=== PATIENT | male | born 1955 | race Caucasian/White ===

== ENCOUNTER 2018-11-02 10:23 | Day surgery (SDC) | payer MEDICARE, OTHER ==
[~2018-11-02 10:23] MED LIST: DEXAMETHASONE SOD PHOSPHATE 10 MG/ML 1 ML VIAL IV ONE; HEPARIN SODIUM,PORCINE 5,000 UNIT/ML 1 ML VIAL SQ ONE; LIDOCAINE 1% 20 ML VIAL (10MG/ML) FOR IV START INTRADERMA PRN; MIDAZOLAM 2 MG/2 ML VIAL IV PRN; ceFAZolin IN SWFI 2 GM/20 ML SYRINGE IVP ONE; fentaNYL (PF) 50 MCG/ML 2 ML AMP IV PRN
[2018-11-02] MEDS: LACTATED RINGERS 1,000 ML IV SCH ×2 (12:02→12:12)
[2018-11-02] MEDS ORDERED: ONDANSETRON 4 MG/2 ML VIAL IVP ONE (12:13)
--- NOTE | 2018-11-02 12:21 | P.GSHP ---
History of Present Illness H&P Date: 11/02/18 Chief Complaint: Bilateral inguinal hernia This is a 62-year-old male who presents today for laparoscopic repair of bilateral inguinal hernias. Patient's had complaints of bilateral inguinal pain in the past. Past Medical History Past Medical History: GERD/Reflux, Hypertension History of Any Multi-Drug Resistant Organisms: None Reported Past Surgical History: No Surgical Hx Reported Past Anesthesia/Blood Transfusion Reactions: No Reported Reaction Additional Past Anesthesia/Blood Transfusion Reaction / Comment(s): HAS NEVER HAD ANESTHESIA. Past Psychological History: Anxiety, Depression Additional Psychological History / Comment(s): PATIENT HE TAKES NO MEDS FOR THIS Smoking Status: Current every day smoker Past Alcohol Use History: Occasional Additional Past Alcohol Use History / Comment(s): HAS SMOKED SINCE HE WAS 11, ABOUT 1PPD. HISTORY OF HEAVY ETOH, 1 PINT PER DAY. Past Drug Use History: None Reported - Past Family History Mother Family Medical History: Unable to Obtain Additional Family Medical History / Comment(s): PATIENT RAISED IN FOSTER HOMES. Medications and Allergies Home Medications Medication Instructions Recorded Confirmed Type Albuterol Inhaler [Ventolin Hfa 1 - 2 puff INHALATION RT-Q6H PRN 11/02/18 11/02/18 History Inhaler] Aspirin [Adult Low Dose Aspirin EC] 81 mg PO DAILY 11/02/18 11/02/18 History Losartan [Cozaar] 25 mg PO DAILY 11/02/18 11/02/18 History Metoprolol Tartrate [Lopressor] 25 mg PO BID 11/02/18 11/02/18 History Omeprazole 20 mg PO DAILY 11/02/18 11/02/18 History Allergies Allergy/AdvReac Type Severity Reaction Status Date / Time No Known Allergies Allergy Verified 11/02/18 11:38 Surgical - Exam Vital Signs Temp Pulse Resp BP Pulse Ox 97.6 F 67 16 142/70 98 11/02/18 11:36 11/02/18 11:36 11/02/18 11:36 11/02/18 11:36 11/02/18 11:36 - General well developed, well nourished, no distress - Eyes PERRL - ENT normal pinna - Neck no masses - Respiratory normal expansion - Cardiovascular Rhythm: regular - Abdomen Abdomen: soft, non tender Hernia: inguinal (Bilateral inguinal hernia) Assessment and Plan Assessment: Bilateral inguinal hernia. We'll perform laparoscopic robotic assistance repair.
[2018-11-02] MEDS ORDERED: fentaNYL (PF) 50 MCG/ML 2 ML AMP IV ONE (12:35)
[2018-11-02] MEDS ORDERED: ROPIVACAINE 5 MG/ML 30 ML VIAL ONE (12:53)
[2018-11-02] MEDS ORDERED: SUCCINYLCHOLINE CHLORIDE 100 MG/5 ML SYR IV ONE (12:53)
[2018-11-02] MEDS ORDERED: GLYCOPYRROLATE 0.2 MG/ML 2 ML VIAL ONE (12:53)
[2018-11-02] MEDS ORDERED: ROCURONIUM BROMIDE 10 MG/ML 10 ML VIAL IV ONE (12:53)
[2018-11-02] MEDS ORDERED: MIDAZOLAM 2 MG/2 ML VIAL ONE (12:53)
[2018-11-02] MEDS ORDERED: PROPOFOL 10 MG/ML 20 ML VIAL IV ONE (12:53)
[2018-11-02] MEDS ORDERED: NEOSTIGMINE 1 MG/ML 10 ML VIAL ONE (12:53)
[2018-11-02] MEDS ORDERED: fentaNYL (PF) 50 MCG/ML 2 ML AMP ONE (12:53)
--- NOTE | 2018-11-02 13:01 | P.ONQ ---
Anesthesiology Proc Note - PNB - Peripheral Nerve Block Performed Bilateral Transversus Abdominis Single Time Out Performed: Yes Procedure Start Time: 12:35 Indication: Acute Post-Operative Pain Specifically requested for management of pain by DrParam: Casimiro Bowen Sedation Type: Sedate with meaningful contact maintained Preparation: Sterile Prep Position: Supine Catheter: None Needle Types: Other (see comment) ([id number]) Needle Size: 100mm (4") Needle Gauge: 20 Technique: Ultrasound Injectate: Other (see comment) (0.25% ropivacaine/0.5% lidocaine 30 mL per side) Adjunct: Epinephrine (see comment for dilution ratio) (1:200,000) Blood Aspirated: No Pain Paresthesia on Injection Noted: No Resistance on Injection: Normal Events: Uneventful and Well Tolerated
[2018-11-02] MEDS ORDERED: BUPIVACAIN-EPI 0.5%-1:200,000 30 ML VIAL SQ ONE (13:17)
[2018-11-02 14:22] VITALS: TEMP 97.2
--- NOTE | 2018-11-02 14:24 | P.OP ---
Date of Procedure: 11/02/18 Preoperative Diagnosis: Bilateral inguinal hernias Postoperative Diagnosis: Bilateral inguinal hernias Procedure(s) Performed: Laparoscopic robotic-assisted repair of bilateral inguinal hernia. Excision of bilateral cord lipoma Anesthesia: MAREN Surgeon: Casimiro Bowen Estimated Blood Loss (ml): 5 Pathology: other (Bilateral cord lipoma) Condition: stable Disposition: PACU Description of Procedure: The patient's placed on the operating table in the supine position. The patient received general anesthesia. The patient's abdomen was prepped and draped in usual sterile fashion. The skin was anesthetized 1% local Xylocaine at the incision sites. Using an 11 blade a skin incision was made at the umbilicus. The fascia was grasped with a [place] and then the peritoneal cavity was entered with the Veress needle. Position of the Veress needle was confirmed with a positive drop test. After adequate insufflation a 5 mm trocar was placed into the peritoneal cavity. The Laparoscope was placed the peritoneal cavity. And a robotic 8 mm trocar was placed in the right lateral position and then another 8 mm robotic trochars placed in the left lateral position. The original 5 mm trocar was exchanged for a 12 mm trocar. The patient was placed in reverse Trendelenburg and then the patient was docked to the robot. Next the peritoneum over top of the right inguinal hernia was incised and then using blunt and sharp dissection and electrocautery the hernia sac was dissected free from the floor of the inguinal canal. There was a cord lipoma and this was dissected free and sent to pathology. The hernia sac was completely reduced into the peritoneal cavity. And then using the Pro line service person mesh the hernia was repaired. The peritoneum was then sutured with 20V lock suture. Next the peritoneum over top of the left inguinal hernia was incised and then using blunt and sharp dissection and electrocautery the hernia sac was dissected free from the floor of the inguinal canal. There was a cord lipoma and this was dissected free and sent to pathology. The hernia sac was completely reduced into the peritoneal cavity. And then using the Pro line service person mesh the hernia was repaired. The peritoneum was then sutured with 20V lock suture. The patient was then undocked the robot. The needle was withdrawn from the peritoneal cavity. The umbilical trocar site was closed with 0 Ethibond suture. The skin was closed interrupted 3-0 Monocryl suture. Dermabond dressing was applied. Patient was sent to recovery in stable condition.
[2018-11-02] MEDS ORDERED: HYDROcodone/APAP 7.5-325MG 1 EACH TAB PO ONE (15:40)
[2018-11-02 17:23] VITALS: BP 149/86; PULSE 68; RESP 18
== END 2018-11-02 19:00 | disposition home or self-care (01) ==
LOC: OR 10:23
PROVIDERS: ATTEND Surgery
DX: K40.20 Bilateral inguinal hernia, without obstruction or gangrene, not specified as recurrent (principal); F17.210 Nicotine dependence, cigarettes, uncomplicated; I10 Essential (primary) hypertension; K21.9 Gastro-esophageal reflux disease without esophagitis; Z79.82 Long term (current) use of aspirin; Z79.899 Other long term (current) drug therapy; D17.6 Benign lipomatous neoplasm of spermatic cord
CPT/HCPCS: 93005; 88304; 49650; 55559; C1781; J2250; J1644; J1100; J2710; J2405; J3010; J2795; J0330; J2704; J0690